=== PATIENT | female | born 1995 | race Caucasian/White ===

== ENCOUNTER 2020-11-29 00:21 | Emergency (ER) | payer MEDICAID ==
[~2020-11-29] VITALS: Ht 149.9 cm; Wt 59.4 kg
[2020-11-29 00:30] VITALS: BP_SYST 107
[2020-11-29] MEDS ORDERED: AZITHROMYCIN 250 MG TABLET PO ONE (02:00)
[2020-11-29] MEDS ORDERED: NAPR-686 PO (02:09)
[2020-11-29] MEDS ORDERED: ZIT250 PO (02:09)
[2020-11-29] MEDS ORDERED: OXYM15MI9 NS (02:09)
[2020-11-29] MEDS ORDERED: PRED20TA PO (02:09)
[2020-11-29 02:30] VITALS: BP_SYST 107
== END 2020-11-29 02:30 | disposition home or self-care (01) ==
LOC: SED 00:21
DX: J01.00 Acute maxillary sinusitis, unspecified (principal); Z88.8 Allergy status to other drugs, medicaments and biological substances
CPT/HCPCS: 99283; Q0144

== ENCOUNTER 2021-04-24 18:37 | Emergency (ER) | payer MEDICAID ==
[~2021-04-24] VITALS: Ht 149.9 cm; Wt 58.5 kg
[~2021-04-24 18:37] MED LIST: NAPR-686 PO; OXYM15MI9 NS; PRED20TA PO; ZIT250 PO
[2021-04-24 19:59] VITALS: BP_SYST 125
--- NOTE | 2021-04-24 19:59 | NUR ---
Patient came in to the emergency department c/o runny nose, sore throat and cough. Patient reports she has bad allergies for which she frequently takes Zyrtec. Patient reports that 2 weeks ago she was at this ED for similar symptoms and was diagnosed with sinusitis and prescribed azithromycin and promethazine. Patient took medications with relief. Patient presents to the ED because her symptoms have returned. Otherwise, the patient denies fever, chest pain, shortness of breath, nausea, vomiting, or any other medical complaints at this time.
--- NOTE | 2021-04-24 20:37 | NUR ---
ER examining patient in tent
[2021-04-24] MEDS ORDERED: ZIT250 PO (21:01)
[2021-04-24 21:29] VITALS: BP_SYST 122
--- NOTE | 2021-04-24 21:29 | NUR ---
Patient given written and verbal discharge instructions and verbalizes understanding. ER MD discussed with patient the results and treatment provided. Patient in stable condition. ID arm band removed. Rx of Azithromycin 250 mg tab sent to pharmacy of choice.Patient educated on pain management and to follow up with PMD. Pain Scale 5/10. Opportunity for questions provided and answered.
== END 2021-04-24 21:29 | disposition home or self-care (01) ==
LOC: SED 18:37
DX: J32.0 Chronic maxillary sinusitis (principal); Z88.5 Allergy status to narcotic agent; Z79.899 Other long term (current) drug therapy
CPT/HCPCS: 99283

== ENCOUNTER 2021-08-05 15:44 | Emergency (ER) | payer MEDICAID, SELFPAY ==
[~2021-08-05] VITALS: Ht 149.9 cm; Wt 57.2 kg
[2021-08-05 15:46] VITALS: BP_SYST 138
--- NOTE | 2021-08-05 15:46 | NUR ---
pt. came in with c/o congestion x 1 week with SOB at night, pt. 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
--- NOTE | 2021-08-05 15:46 | NUR ---
Patient to ER bed 8 for evaluation. Side rails up. Assumed care.
--- NOTE | 2021-08-05 16:18 | NUR ---
RON Miranda at bedside examining patient.
[2021-08-05] MEDS ORDERED: FEXO-271 PO (16:35)
[2021-08-05] MEDS ORDERED: FLUT16SP16 NS (16:35)
[2021-08-05 16:45] VITALS: BP_SYST 135
--- NOTE | 2021-08-05 16:45 | NUR ---
Patient given written and verbal discharge instructions and verbalizes understanding. ER Dr. Castillo discussed with patient the results and treatment provided. Patient in stable condition. ID arm band removed. Rx of Flonase and fexofenadine given. Patient educated on pain management and to follow up with PMD. Pain Scale 0. Opportunity for questions provided and answered. Medication side effect fact sheet provided.
== END 2021-08-05 16:45 | disposition home or self-care (01) ==
LOC: SED 15:44
DX: R05.9 Cough, unspecified (principal); J34.89 Other specified disorders of nose and nasal sinuses; R06.00 Dyspnea, unspecified; Z79.899 Other long term (current) drug therapy; Z79.52 Long term (current) use of systemic steroids; Z88.8 Allergy status to other drugs, medicaments and biological substances; Z20.822 Contact with and (suspected) exposure to COVID-19
CPT/HCPCS: 99283; C9803; U0003

== ENCOUNTER 2022-08-10 17:24 | Emergency (ER) | payer MEDICAID ==
[~2022-08-10] VITALS: Ht 149.9 cm; Wt 66.7 kg
[~2022-08-10 17:24] MED LIST changes: +FEXO-272 PO; +FLUT16SP16 NS
[2022-08-10 17:27] VITALS: BP_SYST 132
[2022-08-10 17:53] LABS: BILIRUBIN,URINE NEGATIVE (NEGATIVE); BLOOD, URINE 3+ (NEGATIVE); COLOR,URINE YELLOW (YELLOW); GLUCOSE,URINE NEGATIVE (NEGATIVE); KETONES,URINE NEGATIVE (NEGATIVE); LEUKOCYTE ESTERASE ,URINE NEGATIVE (NEGATIVE); NITRITE, URINE NEGATIVE (NEGATIVE); PH,URINE 5.5 (5.0-8.0); PROTEIN URINE TRACE (NEGATIVE); UROBILINOGEN,URINE 0.2 (0.2-1.0)
[2022-08-10 18:02] LABS: CLARITY/URINE HAZY (CLEAR)
[2022-08-10 18:03] LABS: BACTERIA,URINE FEW /HPF (None Seen); HCG,QUAL RESULT NEGATIVE (NEGATIVE); MUCUS,URINE None Seen /LPF (None Seen); RBC,URINE 20-50 /HPF (0-3); WBC,URINE 0-3 /HPF (0-3)
[2022-08-10 18:42] LABS: BASOPHILS # (AUTO) 0.1 K/uL (0.0-0.2); BASOPHILS % (AUTO) 0.9 % (0.0-2.0); EOSINOPHILS # (AUTO) 0.7 K/uL (0.0-0.4); EOSINOPHILS % (AUTO) 7.3 % (0.0-4.0); HEMATOCRIT 40.7 % (36-48); HEMOGLOBIN 13.9 g/dL (12.0-16.0); LYMPHOCYTES # (AUTO) 1.8 K/uL (1.0-5.5); LYMPHOCYTES % (AUTO) 19.7 % (20.5-51.5); MEAN CORPUSCULAR HEMOGLOBIN 30 pg (27-31); MEAN CORPUSCULAR HGB CONC 34 % (32-36); MEAN CORPUSCULAR VOLUME 88 fL (79.0-98.0); MONOCYTES # (AUTO) 0.5 K/uL (0.0-1.0); MONOCYTES % (AUTO) 5.9 % (1.7-9.3); NEUTROPHILS % (AUTO) 66.2 % (40.0-70.0); PLATELET COUNT (AUTO) 287 K/uL (130-430); RED BLOOD CELL COUNT(AUTO) 4.62 MIL/uL (4.2-6.2); RED CELL DISTRIBUTION WIDTH 13.8 % (9.0-15.0); WHITE BLOOD COUNT (AUTO) 9.1 K/uL (4.8-10.8)
[2022-08-10 19:32] VITALS: BP_SYST 128
[2022-08-10] MEDS ORDERED: IBUP-1971 PO (19:53)
[2022-08-10] MEDS ORDERED: MEDR10TA72 PO (19:53)
== END 2022-08-10 19:53 | disposition home or self-care (01) ==
LOC: SED 17:24
DX: N93.8 Other specified abnormal uterine and vaginal bleeding (principal); N92.0 Excessive and frequent menstruation with regular cycle; R53.1 Weakness; R42 Dizziness and giddiness; Z88.1 Allergy status to other antibiotic agents; Z79.899 Other long term (current) drug therapy
CPT/HCPCS: 36415; 81000; 81025; 84703; 85025; 99283